=== PATIENT | female | born 1980 | race African-American/Black ===

== ENCOUNTER → 2016-11-15 | Outpatient (CLI) | payer SELFPAY ==
[2016-11-15 10:48] LABS: CH 34.3; CHCM 34.2; HCT 33.4 % (34.0-46.0); HDW 2.17; HGB 11.7 gm/dL (11.4-16.0); MCH 35.3 pg (25.0-35.0); MCHC 35.1 g/dL (31.0-37.0); MCV 100.6 fL (80.0-100.0); Mean Platelet Volume 6.5; RBC 3.32 m/uL (3.80-5.40); WBC 8.1 k/uL (3.8-10.6)
[2016-11-15 11:32] LABS: Glucose 84 mg/dL (74-99); Non-African American GFR(MDRD) >60 (>60 ml/min/1.73 sqM)
[2016-11-15 11:58] LABS: Hepatitis B Surface Ag Index 0.04
[2016-11-15 15:34] LABS: Treponemal Ab Non-Reactive (Non-Reactive)
[2016-11-16 05:28] LABS: Toxoplasma Antibody (IgG) <3.0 IU/mL (<7.2)
[2016-11-18 10:16] LABS: Alpha Fetoprotein 45.7 ng/mL; Alpha Fetoprotein (M.O.M) 0.82 (Negative); B-HCG (M.O.M.) 0.42; Gestational Age (days) 4; Human Chorionic Gonadotropin 10.9 IU/mL; Inhibin A (M.O.M.) 1.19; Interpretation SeeBelow; Maternal Age at EDD (Yrs) 36; Smoker Not Provided; Unconjugated Estriol (M.O.M.) 0.85
== END | disposition home or self-care (01) ==
LOC: LABWHC1 09:37
PROVIDERS: ATTEND Obstetrics & Gynecology
DX: Z34.82 Encounter for supervision of other normal pregnancy, second trimester (principal); Z3A.00 Weeks of gestation of pregnancy not specified
CPT/HCPCS: 36415; 82105; 82565; 82677; 82947; 83021; 84702; 85027; 86336; 86762; 86777; 86778; 86780; 86850; 86900; 86901; 87340; 87390

== ENCOUNTER → 2017-02-03 | Outpatient (CLI) | payer OTHER ==
[2017-02-03 09:44] LABS: CH 34.9; CHCM 33.9; HCT 34.7 % (34.0-46.0); HDW 2.21; HGB 11.8 gm/dL (11.4-16.0); MCH 35.3 pg (25.0-35.0); MCHC 34.1 g/dL (31.0-37.0); MCV 103.5 fL (80.0-100.0); Macrocytosis Slight; RBC 3.35 m/uL (3.80-5.40); RDW 12.8 % (11.5-15.5)
== END | disposition home or self-care (01) ==
LOC: LABWHC1 08:26
PROVIDERS: ATTEND Obstetrics & Gynecology
DX: Z34.82 Encounter for supervision of other normal pregnancy, second trimester (principal); Z3A.00 Weeks of gestation of pregnancy not specified
CPT/HCPCS: 36415; 82950; 85027

== ENCOUNTER 2017-03-26 07:31 | Inpatient (IN) | payer OTHER ==
[2017-03-26] MEDS ORDERED: TERBUTALINE 1 MG/ML VIAL SQ PRN (08:05)
[2017-03-26] MEDS ORDERED: LIDOCAINE 1% (PF) 10 MG/ML (30 ML SDV) SQ PRN (08:05)
[2017-03-26] MEDS ORDERED: CARBOPROST TROMETHAMINE 250 MCG/ML 1 ML AMP IM PRN (08:05)
[2017-03-26] MEDS ORDERED: OXYTOCIN 10 UNIT/ML 1 ML VIAL IM PRN (08:05)
[2017-03-26] MEDS ORDERED: METHYLERGONOVINE 0.2 MG/ML 1 ML AMP IM PRN (08:05)
[2017-03-26] MEDS ORDERED: OXYTOCIN 20 UNITS/1000 ML NS 1,000 ML IV SCH (08:15)
[2017-03-26] MEDS ORDERED: BUTORPHANOL 1 MG/ML 1 ML VIAL IV PRN (08:22)
[2017-03-26] MEDS: LACTATED RINGERS 1,000 ML IV SCH ×3 (08:27→13:38)
[2017-03-26 08:39] LABS: Basophils % (A) 0 %; CHCM 32.4; Eosinophils # (A) 0.2 k/uL (0-0.7); Eosinophils % (A) 2 %; HCT 36.6 % (34.0-46.0); HDW 2.49; HGB 12.1 gm/dL (11.4-16.0); Luc # (Auto) 0.09; Luc % (Auto) 1; Lymphocytes # (A) 1.9 k/uL (1.0-4.8); Lymphocytes % (A) 23 %; MCHC 33.2 g/dL (31.0-37.0); MCV 102.4 fL (80.0-100.0); Macrocytosis Slight; Mean Platelet Volume 7.2; Monocytes # (A) 0.5 k/uL (0-1.0); Monocytes % (A) 6 %; Neutrophils # (A) 5.7 k/uL (1.3-7.7); Neutrophils % (A) 68 %; RBC 3.57 m/uL (3.80-5.40); RDW 13.7 % (11.5-15.5); WBC 8.4 k/uL (3.8-10.6); WBC (Perox) 9.38
[2017-03-26 09:28] VITALS: BMI 27.1
[2017-03-26] MEDS ORDERED: fentaNYL (PF) 50 MCG/ML 5 ML AMP ONE (10:45)
[2017-03-26] MEDS ORDERED: BUPIVACAINE (PF) 0.25% 30 ML VIAL ONE (10:45)
[2017-03-26] MEDS ORDERED: SODIUM CHLORIDE 0.9% 100 ML BAG ONE (10:45)
[2017-03-26] MEDS ORDERED: BUPIVACAINE (PF) 0.25% 25 ML, fentaNYL (PF) 200 MCG in SODIUM CHLORIDE 0.9% 71 ML EPIDURAL ONE (11:15)
[2017-03-26] MEDS ORDERED: WITCH HAZEL 1 EACH MED..PAD TOPICAL PRN (17:36)
[2017-03-26] MEDS ORDERED: diphenhydrAMINE 50 MG CAP PO PRN (17:36)
[2017-03-26] MEDS ORDERED: BENZOCAINE/MENTHOL SPRAY 1 GM/SPRAY AEROSOL TOPICAL PRN (17:36)
[2017-03-26] MEDS ORDERED: ZOLPIDEM 5 MG TAB PO PRN (17:36)
[2017-03-26] MEDS ORDERED: MEASLES-MUMPS-RUBELLA VACC/PF 12,500 UNIT/0.5 ML VIAL SQ ONE (17:36)
[2017-03-26] MEDS ORDERED: Acetaminophen-Codeine 300-30mg TAB PO PRN ×2 (17:36)
[2017-03-26] MEDS ORDERED: HYDROCORTISONE 2.5% RECTAL CREAM 30 GM TUBE RECTAL PRN (17:36)
[2017-03-26] MEDS ORDERED: SIMETHICONE 80 MG CHEWABLE PO PRN (17:36)
[2017-03-26] MEDS ORDERED: diphenhydrAMINE 50 MG/ML 1 ML VIAL IVP PRN ×2 (17:36)
[2017-03-26] MEDS ORDERED: diphenhydrAMINE 25 MG CAP PO PRN (17:36)
[2017-03-26] MEDS ORDERED: IBUPROFEN 600 MG TAB PO PRN (17:36)
[2017-03-26] MEDS ORDERED: LANOLIN CREAM 5 GM TUBE TOPICAL PRN (17:36)
--- NOTE | 2017-03-26 17:39 | P.HPOB ---
History of Present Illness H&P Date: 03/26/17 Chief Complaint: IntraUterine at term: PROM Ashlyn is a 37-year-old at 37 weeks gestation arise following spontaneous rupture membranes this morning. Fluid was noted clear. She was dilated 1-1/2 cm 80% effaced -2 station. Precis course has been unremarkable she's been receiving nonstress tests due to grade 3 placenta and advanced maternal age. Otherwise her course has been unremarkable. Pertinent labs O+ blood type Rh antibody was negative. Rubella is nonimmune. Hepatitis B surface antigen RPR and HIV were all negative as was group B strep. On physical exam vital signs are stable and afebrile. Heart regular, lungs clear, extremities without pain. Osteopathic exams unremarkable. heart tones are noted in the 130s 140s and have been reactive. Assessment intrauterine at term. Plan expect spontaneous vaginal delivery. She anticipates use of epidural for analgesia. Past Medical History Past Medical History: No Reported History History of Any Multi-Drug Resistant Organisms: None Reported Past Surgical History: Orthopedic Surgery Additional Past Surgical History / Comment(s): knee surgery, cervical conization , eye surgery Past Anesthesia/Blood Transfusion Reactions: No Reported Reaction Past Psychological History: Depression Smoking Status: Current every day smoker Past Alcohol Use History: None Reported Past Drug Use History: None Reported - Past Family History Mother Family Medical History: No Reported History Medications and Allergies Home Medications Medication Instructions Recorded Confirmed Type Pnv,Calcium 72/Iron/Folic Acid 1 tab PO DAILY 03/26/17 03/26/17 History [ Plus Tablet] Allergies Allergy/AdvReac Type Severity Reaction Status Date / Time banana Allergy Nausea & Verified 03/26/17 07:54 Vomiting naproxen AdvReac Vomiting Verified 03/12/17 00:42 Exam Osteopathic Statement: *. No significant issues noted on an osteopathic structural exam other than those noted in the History and Physical/Consult. - Vital Signs Vital signs: Vital Signs Temp Pulse Resp BP Pulse Ox 03/26/17 07:55 97.8 F 66 18 132/83 100 Intake and Output 03/26/17 03/26/17 03/26/17 06:59 14:59 22:59 Other: Weight 67.132 kg Patient Weight 03/27/17 06:59 Weight 67.132 kg Results Result Diagrams: 03/26/17 08:25 Abnormal Lab Results - Last 24 Hours (Table) 03/26/17 Range/Units 08:25 RBC 3.57 L (3.80-5.40) m/uL MCV 102.4 H (80.0-100.0) fL
--- NOTE | 2017-03-26 17:40 | P.PROBDLV ---
Vaginal Delivery Note - . Vaginal Delivery Note: August progressed to complete and pushing with spontaneous vaginal delivery of a viable female over an intact perineum. Falling deliver the head anterior posterior shoulders were delivered with gentle downward and upward traction followed by the remainder the baby. Mouth nares were then bulb suctioned and baby was placed on mother's abdomen with the umbilical cord was allowed to pulsate for 30 seconds prior to clamping and cutting. Once this was accomplished nursery personnel was present to assume care. Placenta was then delivered intact and Pitocin was added to the IV. scores were 9 and 9 at one and 5 minutes respectively and the weight was 5 lbs. 15 oz. Both mother and baby are stable following delivery.
[2017-03-26] MEDS: ACETAMINOPHEN TAB 325 MG TAB PO PRN (18:13)
[2017-03-26] MEDS ORDERED: SENNOSIDES-DOCUSATE SODIUM 1 EACH TAB PO SCH (20:00)
[2017-03-26] MEDS: SENNA LEAF EXTRACT SYRUP 528 MG/15 ML CUP PO SCH (21:48)
[2017-03-27] MEDS: ACETAMINOPHEN TAB 325 MG TAB PO PRN ×2 (01:05→05:15)
[2017-03-27] MEDS: SENNA LEAF EXTRACT SYRUP 528 MG/15 ML CUP PO SCH (10:56)
--- NOTE | 2017-03-27 11:08 | P.DS ---
Providers Date of admission: 03/26/17 07:59 Expected date of discharge: 03/27/17 Attending physician: Denis Sykes [facility] Course: Ashlyn is doing very well day 1. She is involuting, voiding and she is tolerating her diet. She voices no complaints. Vital signs are stable and afebrile. Heart regular, lungs clear, extremities without pain. Prescription for Tylenol 3 and breast pump been provided. Discharge instructions reviewed and all questions are answered for her. Should be noted that her abdomen is soft uterus is firm and lochia is reported be light. Assessment day 1. Plan discharged home follow up with me in 6 weeks. Patient Condition at Discharge: Good Plan - Discharge Summary New Discharge Prescriptions: New Acetaminophen-Codeine 300-30mg [Tylenol #3] 1 tab PO Q4H PRN #30 tablet PRN Reason: Pain No Action Pnv,Calcium 72/Iron/Folic Acid [ Plus Tablet] 1 tab PO DAILY Discharge Medication List Pnv,Calcium 72/Iron/Folic Acid [ Plus Tablet] 1 tab PO DAILY 03/26/17 [ History] Acetaminophen-Codeine 300-30mg [Tylenol #3] 1 tab PO Q4H PRN #30 tablet [Rx] Follow up Appointment(s)/Referral(s): Denis Sykes DO [Doctor of Osteopathic Medicine] - 6 Weeks Activity/Diet/Wound Care/Special Instructions: The lifting, limit stairs and driving, and pelvic rest. If any high temperatures, heavy bleeding, or severe pain call my office Discharge Disposition: HOME SELF-CARE
[2017-03-27] MEDS ORDERED: PRENATAL VIT-IRON-FOLIC ACID 1 EACH CAP PO SCH (12:00)
[2017-03-27 18:26] VITALS: BP 128/93; PULSE 72; RESP 18; TEMP 98.1
--- NOTE | 2017-03-28 08:01 | P.MSEPDOC ---
Presenting Problems - Arrival Data Date of Arrival on Unit: 03/26/17 Time of Arrival on Unit: 08:00 Mode of Transport: Wheelchair - Complaint OB-Reason for Admission/Chief Complaint: Rule Out SROM Comment: clear fluid SROM 0530 today Medical History - Information : 7 Para: 3 Term: 3 : 0 Abortions: Spontaneous or Elective: 3 Number of Living Children: 3 - Gestational Age Gestational Age by RED (wks/days): 37 Weeks and 0 Days - History Complications: Smoker Review of Systems - Review of Systems Constitutional: No problems Breast: No problems ENT: No problems Cardiovascular: No problems Respiratory: No problems Gastrointestinal: No problems Genitourinary: No problems Musculoskeletal: No problems Neurological: No problems Skin: No problems Vital Signs - Temperature Temperature: 98.1 F Temperature Source: Oral - Pulse Right Sitting Brachial Pulse Rate: 72 Pulse Assessment Method: Automatic Cuff - Respirations Respiratory Rate: 18 Oxygen Delivery Method: Room Air O2 Sat by Pulse Oximetry: 96 - Blood Pressure Right Arm Sitting Blood Pressure: 128/93 Blood Pressure Mean: 104 Blood Pressure Source: Automatic Cuff Medical Screen Scoring (Pre) - Cervical Exam Dilation: 1-3 cm = 1 Effacement: More than 50% = 2 Membranes: Ruptured = 3 - Uterine Contractions Frequency: > 5 minutes apart = 1 Duration: N/A Intensity: N/A - Maternal Vital Signs Maternal Temperature: N/A Maternal Blood Pressure: N/A Signs of Preeclampsia: N/A Maternal Respirations: N/A - Pain Assessment Pain Location and Character: Abdomen Pain Scale Used: Numeric (1 - 10) Pain Intensity: 4 Pain Management Goal: 2 Pain Description: Cramping - Maternal Trauma Maternal Trauma: N/A - Assessment Baseline FHR: 135 Heart Rate - NICHD Category: Category I (Normal) = 0 NST: Reactive Position: N/A Station: N/A - Total Score Total Score (Pre): 7 - Level of Risk Level of Risk: Medium (6-9) Physician Notification (Pre) - Physician Notified Physician Notified Date: 03/26/17 Physician Notified Time: 08:00 Physician/Practitioner Notifed:: Dr Sykes Spoke With: Dr Sykes New Order Received: Yes - Notification Comment Comment: admit for labor & start pitocin per protocol, pain management orders received. Disposition - Disposition OB Disposition: Admit, LDRP Suite Discharge Date: 03/27/17 Discharge Time: 18:29 I agree with the RN Medical Screening Exam: Yes Risk & Benefit of care provided described in d/c instruction: Yes Diagnosis: RELATED CONDITIONS, UNSPECIFIED, THIRD TRIMESTER (active labor)
== END 2017-03-27 18:30 | disposition home or self-care (01) | DRG 560 ==
LOC: FBPOP 07:31 → 4FBP 07:59
PROVIDERS: ADMIT Obstetrics & Gynecology; ATTEND Obstetrics & Gynecology
PROC: 10E0XZZ Delivery of Products of Conception, External Approach (ICD-10-PCS; principal; 2017-03-26)
DX: O42.92 Full-term premature rupture of membranes, unspecified as to length of time between rupture and onset of labor (principal); F17.200 Nicotine dependence, unspecified, uncomplicated; Z37.0 Single live birth; O99.334 Smoking (tobacco) complicating childbirth; O09.523 Supervision of elderly multigravida, third trimester; Z3A.37 37 weeks gestation of pregnancy
CPT/HCPCS: 59025; 84112; 85025; 88307; 90471; 90707; 99213